=== PATIENT | female | born 1975 | race African-American/Black ===

== ENCOUNTER 2017-12-24 14:20 | Inpatient (IN) | payer OTHER ==
[2017-12-24] MEDS: morphine 10 MG INJ IV (14:58)
[2017-12-24] MEDS: HYDROmorphONE 2 MG/ML SYG IV (15:36)
[2017-12-24 16:39] LABS: HEMATOCRIT 37.2 % (37.0-47.0); HEMOGLOBIN 12.3 g/dl (12.0-16.0); MEAN CORPUSCULAR HEMOGLOBIN 31.6 pg (29.0-33.0); MEAN CORPUSCULAR HGB CONC 33.1 g/dl (32.0-37.0); MEAN CORPUSCULAR VOLUME 95.6 fl (82.0-101.0); MEAN PLATELET VOLUME 11.2 fl (7.4-10.4); PLATELET COUNT 226 10^3/UL (140-415); RED BLOOD COUNT 3.89 10^6/ul (4.20-5.40); RED CELL DISTRIBUTION WIDTH 12.7 % (11.5-14.5)
[2017-12-24 16:39] LABS: WHITE BLOOD COUNT 6.3 10^3/ul (4.8-10.8)
[2017-12-24 16:42] LABS: ADD MAN DIFF? YES; POSITIVE DIFF @See below
[2017-12-24 16:44] LABS: ANION GAP 10 (8-16); BLOOD UREA NITROGEN 15 mg/dl (7-20); CARBON DIOXIDE 26 mmol/L (21-31); CHLORIDE 109 mmol/L (97-110); CREATININE 0.79 mg/dl (0.44-1.00); GLUCOSE 126 mg/dl (70-220); POTASSIUM 3.7 mmol/L (3.5-5.1); SODIUM 141 mmol/L (135-144)
[2017-12-24 16:58] LABS: EOSINOPHILS % (M) 1 % (0-7); LYMPHOCYTES % (M) 33 % (15-51); MONOCYTE #M 0.3 10^3/ul (0.3-0.9); MONOCYTES % (M) 5 % (0-11); PLATELET ESTIMATE NORMAL; POLYCHROMASIA 1+ (0-0); SEGMENTED NEUTROPHILS (M) % 61 % (39-77); SMUDGE%M 7 % (0-0)
[2017-12-24] MEDS: SOD CHLORIDE 0.9% 1,000 ML IV (17:18)
[2017-12-24] MEDS ORDERED: HYDROCODONE/APAP (5/325) TAB PO ×2 (20:30)
[2017-12-24] MEDS ORDERED: ACETAMINOPHEN 650 MG SUPP PR (20:30)
[2017-12-24] MEDS ORDERED: NACL 0.9% 3 ML SYG IV (20:30)
[2017-12-24] MEDS ORDERED: ONDANSETRON 4 MG INJ IV (20:30)
[2017-12-25 05:17] LABS: ADD MAN DIFF? NO
[2017-12-25 05:19] LABS: WHITE BLOOD COUNT 12.2 10^3/ul (4.8-10.8)
[2017-12-25 05:19] LABS: BASOPHILS % 0.2 % (0.0-2.0); HEMATOCRIT 37.3 % (37.0-47.0); HEMOGLOBIN 12.5 g/dl (12.0-16.0); LYMPHOCYTES % 8.1 % (15.0-51.0); MEAN CORPUSCULAR HEMOGLOBIN 31.7 pg (29.0-33.0); MEAN CORPUSCULAR HGB CONC 33.5 g/dl (32.0-37.0); MEAN CORPUSCULAR VOLUME 94.7 fl (82.0-101.0); MEAN PLATELET VOLUME 10.8 fl (7.4-10.4); MONOCYTE # 0.7 10^3/ul (0.3-0.9); MONOCYTES % 5.6 % (0.0-11.0); NEUTROPHIL # 10.5 10^3/ul (1.6-7.5); NEUTROPHILS % 85.8 % (39.0-77.0); PLATELET COUNT 200 10^3/UL (140-415); RED BLOOD COUNT 3.94 10^6/ul (4.20-5.40); RED CELL DISTRIBUTION WIDTH 12.5 % (11.5-14.5)
[2017-12-25 06:20] LABS: ALANINE AMINOTRANSFERASE 26 IU/L (13-69); ALBUMIN/GLOBULIN RATIO 0.95; ALKALINE PHOSPHATASE 61 IU/L (42-121); ANION GAP 16 (8-16); ASPARTATE AMINO TRANSFERASE 33 IU/L (15-46); BLOOD UREA NITROGEN 9 mg/dl (7-20); CALCIUM 8.5 mg/dl (8.4-10.2); CARBON DIOXIDE 22 mmol/L (21-31); CHLORIDE 104 mmol/L (97-110); CREATININE 0.57 mg/dl (0.44-1.00); GLUCOSE 117 mg/dl (70-220); MAGNESIUM 1.7 mg/dl (1.7-2.5); PHOSPHORUS 3.1 mg/dl (2.5-4.9); SODIUM 138 mmol/L (135-144); TOTAL PROTEIN 8.2 g/dl (6.1-8.1)
[2017-12-25] MEDS ORDERED: NACL 0.9% 3 ML SYG IV (07:00)
[2017-12-25] MEDS ORDERED: ACETAMINOPHEN 325 MG TAB PO (07:00)
[2017-12-25] MEDS ORDERED: ONDANSETRON 4 MG INJ IV (07:00)
[2017-12-25] MEDS: DEXTROSE 5%-0.45% NACL 1,000 ML IV (08:55)
== END 2017-12-26 20:45 | disposition home or self-care (01) | DRG 563 ==
LOC: E/R 14:20 → MS1 19:33
PROC: 2W3AX1Z Immobilization of Right Upper Arm using Splint (ICD-10-PCS; principal; 2017-12-24)
DX: S42.421A Displaced comminuted supracondylar fracture without intercondylar fracture of right humerus, initial encounter for closed fracture (principal); W01.0XXA Fall on same level from slipping, tripping and stumbling without subsequent striking against object, initial encounter; Y93.01 Activity, walking, marching and hiking; Y92.89 Other specified places as the place of occurrence of the external cause; Y99.0 Civilian activity done for income or pay
CPT/HCPCS: 73080-RT; 73200; 80048; 80053; 83735; 84100; 85025; 96374; 96375; 97165; 99285-25